=== PATIENT | female | born 1995 | race Caucasian/White ===

== ENCOUNTER 2017-03-28 17:49 | Emergency (ER) | payer OTHER ==
--- NOTE | ~2017-03-28 | CT2 ---
[facility] A Service of [facility] RADIOLOGY TEXT RESULTS PATIENT: ROMELIA DIAZ LOCATION: SED : [birth year] UNIT #: [id number] AGE: [address]: Mazin Bailey SEX: F ORDER DR: [id number] [place] [id number] E MR#: [id number] Acc #: [id number] NAME: ROMELIA DIAZ : 1995 SEX: F STUDY DATE/TIME: 03/28/2017 20:18 UNIT: SED ROOM: STUDY DESCRIPTION: CT Abd and Pelv W Cont Attending Physician: Mazin Bailey P.A.-C. Ordering Physician: Mazin Bailey P.A.-C. Primary Care Physician: Primary Care Physician No MEDICAL IMAGING REPORT This report is preliminary unless electronic signature is present. EXAM CT abdomen and pelvis, 03/28/2017 HISTORY Diarrhea 1 month. Vaginal itching. TECHNIQUE CT abdomen and pelvis performed with intravenous administration 100 mL Isovue-370. Enteric contrast also administered. No comparisons. This CT exam was performed with one or more of the following radiation dose reduction techniques: Automatic exposure control, adjustment of mA and/or kV according to patient size, and iterative reconstruction. FINDINGS Lung bases clear. Inferior heart and pericardium unremarkable. Liver, gallbladder, spleen, pancreas, adrenal glands, kidneys unremarkable. CT PELVIS: No inguinal adenopathy. Urinary bladder, uterus unremarkable. Small follicular ovarian cysts. No free fluid in pelvis. No pelvic or retroperitoneal adenopathy. Distal esophagus unremarkable. Stomach, small bowel, appendix, colon unremarkable. Vascular structures appear normal in caliber. The bony structures show mild thoracolumbar scoliosis. No acute-appearing bony abnormality. IMPRESSION 1. No clearly acute abnormalities seen in the abdomen or pelvis. 2. Gallbladder, pancreas, kidneys, appendix all unremarkable in appearance. 3. Small follicular ovarian cysts bilaterally. No suspicious adnexal findings. No pelvic fluid collections. 4. Mild thoracolumbar scoliosis. No acute-appearing bony abnormality. [facility] A Service of [facility] RADIOLOGY TEXT RESULTS PATIENT: ROMELIA DIAZ LOCATION: SED : [birth year] UNIT #: [id number] AGE: [address]: Mazin Bailey PAC SEX: F ORDER DR: Dictated by... Mazin Amador M.D. THIS IS AN ELECTRONICALLY VERIFIED REPORT Mazin Amador M.D. at 03/29/2017 2:21 PM JACQUELINE/miguel TD: 03/29/2017 00:16 JOB #: [id number] MEDICAL IMAGING REPORT Page 1 of 1
[2017-03-28] MEDS ORDERED: NO MEDICATIONS (17:58)
[2017-03-28 19:06] LABS: URINE SOURCE CLEAN CATCH
[2017-03-28 19:08] LABS: URINE APPEARANCE CLOUDY; URINE BILIRUBIN NEG (NEG); URINE BLOOD 1+ (NEG); URINE COLOR YELLOW; URINE GLUCOSE NEG (NORM); URINE KETONE NEG (NEG); URINE LEUKOCYTE ESTERASE TRACE (NEG); URINE NITRATE NEG (NEG); URINE PH 5.5 (5-8); URINE PROTEIN NEG (NEG); URINE SPECIFIC GRAVITY >=1.030 (1.003-1.035); URINE UROBILINOGEN 0.2 MG/DL (NORM)
[2017-03-28 19:09] LABS: MICRO INDICATED? YES
[2017-03-28 19:16] LABS: CULTURE INDICATED? YES; URINE AMORPHOUS SEDIMENT AMORP URATES; URINE BACTERIA 2+ (NEG); URINE MUCUS PRESENT; URINE SQUAMOUS EPITHELIAL CELL FEW /[HPF]
[2017-03-28 19:26] LABS: BASOPHIL# 0.1 X10e3 (0-0.3); BASOPHIL% 0.9 % (0-2.5); EOSINOPHIL# 0.4 X10e3 (0-0.7); EOSINOPHIL% 4.3 % (0.0-7.0); HEMATOCRIT 41.2 % (35.0-45.0); HEMOGLOBIN 14.1 gm/dL (12.0-16.0); LYMPHOCYTE# 2.1 X10e3 (1.0-3.5); LYMPHOCYTE% 24.2 % (17.0-45.0); MEAN CELL VOLUME 82.2 FL (83-96); MEAN CORPUSCULAR HEMOGLOBIN 28.1 PG (28-34); MEAN CORPUSCULAR HGB CONC 34.1 g/dL (30-36); MEAN PLATELET VOLUME 7.7 FL (6.5-11.5); MONOCYTE# 0.5 X10e3 (0-1.0); MONOCYTE% 5.8 % (3.0-12.0); NEUTROPHIL# 5.6 X10e3 (1.5-7.1); NEUTROPHIL% 64.8 % (40-75); PLATELET COUNT 334 X10e3 (140-420); RED BLOOD COUNT 5.01 X10e (3.90-5.30); RED CELL DISTRIBUTION WIDTH 13.8 % (11.0-15.5); WHITE BLOOD COUNT 8.7 X10e3 (4.0-10.5)
[2017-03-28 19:27] LABS: DIFF IND NO
[2017-03-28 19:41] LABS: ALBUMIN SERUM 4.2 g/dL (3.5-5.0); BILIRUBIN, DIRECT 0.1 mg/dL (0.0-0.2); BILIRUBIN,INDIRECT 0.3 mg/dL (0.0-0.9); BILIRUBIN,TOTAL 0.4 mg/dL (0.2-2.0); CALCIUM SERUM 9.3 mg/dL (8.4-10.2); CREATININE SERUM 0.6 mg/dL (0.6-1.4); GLOM FILT RATE Estimated 131.2 mL/min (>60); POTASSIUM 3.7 mmol/L (3.5-5.1); PROTEIN TOTAL SERUM 7.7 g/dL (6.0-8.3)
== END 2017-03-28 22:28 | disposition home or self-care (01) ==
LOC: SED 17:49
PROVIDERS: Physician Assistant
DX: N39.0 Urinary tract infection, site not specified (principal); F17.210 Nicotine dependence, cigarettes, uncomplicated
CPT/HCPCS: 36415; 74177; 80048; 80076; 81003; 83690; 84703; 85025; 87086; 96360; 99284; Q9967

== ENCOUNTER 2017-04-01 10:19 | Emergency (ER) | payer OTHER ==
[~2017-04-01 10:19] MED LIST: NO MEDICATIONS
[2017-04-01] MEDS ORDERED: DIFLUCAN100 MG (10:28)
[2017-04-01] MEDS ORDERED: LOMOTIL 2.5-0.1 EACH (10:28)
[2017-04-01] MEDS ORDERED: CIPRO (10:28)
[2017-04-01 11:11] LABS: URINE SOURCE CLEAN CATCH
[2017-04-01 11:14] LABS: URINE APPEARANCE CLEAR; URINE BILIRUBIN NEG (NEG); URINE BLOOD NEG (NEG); URINE COLOR YELLOW; URINE GLUCOSE NEG (NORM); URINE KETONE NEG (NEG); URINE LEUKOCYTE ESTERASE NEG (NEG); URINE NITRATE NEG (NEG); URINE PROTEIN NEG (NEG); URINE SPECIFIC GRAVITY >=1.030 (1.003-1.035); URINE UROBILINOGEN 0.2 MG/DL (NORM)
[2017-04-01 11:17] LABS: MICRO INDICATED? NO
[2017-04-01] MEDS ORDERED: IBUPROFEN (12:11)
[2017-04-01] MEDS ORDERED: FLAGYL (12:11)
[2017-04-01] MEDS ORDERED: ZOVIRAX400 MG (12:11)
[2017-04-01] MEDS ORDERED: NYSTATIN15 G2 (12:12)
[2017-04-04 12:36] LABS: CHLAMYDIA TRACH Detected (Not Detected); N GONOR Detected (Not Detected)
== END 2017-04-01 12:11 | disposition home or self-care (01) ==
LOC: SED 10:19
PROVIDERS: Nurse Practitioner Family
DX: A60.04 Herpesviral vulvovaginitis (principal); F17.200 Nicotine dependence, unspecified, uncomplicated
CPT/HCPCS: 81003; 84703; 87210; 87253; 87491; 87591; 87808; 87905; 99284